=== PATIENT | male | born 1985 | race Two or more races ===

== ENCOUNTER 2016-08-25 13:27 | Emergency (ER) | payer OTHER ==
[~2016-08-25] VITALS: Ht 172.7 cm; Wt 68.2 kg
[2016-08-25 13:42] LABS: GLUCOSE,POINT OF CARE 70 MG/DL (70-110)
[2016-08-25 13:45] LABS: BASOPHILS % (AUTO) 0.4 % (0.0-2.0); EOSINOPHILS % (AUTO) 0.8 % (1.0-6.0); HEMATOCRIT 42.9 % (41-53); HEMOGLOBIN 14.1 g/dL (13.5-17.5); LYMPHOCYTES # (AUTO) 2.5 K/uL (1.0-4.8); LYMPHOCYTES % (AUTO) 28.3 % (22.0-44.0); MEAN CORPUSCULAR HEMOGLOBIN 26.2 pg (26.0-34.0); MEAN CORPUSCULAR HGB CONC 32.7 G/dL (31.0-37.0); MEAN CORPUSCULAR VOLUME 80 fL (80-100); MONOCYTES # (AUTO) 0.4 K/uL (0.1-1.0); MONOCYTES % (AUTO) 4.2 % (2.0-9.0); NEUTROPHILS # (AUTO) 5.9 K/uL (1.8-7.7); NEUTROPHILS % (AUTO) 66.3 % (40.0-70.0); PLATELET COUNT (AUTO) 492 K/uL (150-450); RED BLOOD CELL COUNT(AUTO) 5.35 MIL/uL (4.50-5.90); WHITE BLOOD COUNT (AUTO) 8.9 K/uL (4.5-11.0)
[2016-08-25 13:58] LABS: ANION GAP 11 mmol/L (8-16); CALCIUM, TOTAL 9.6 mg/dL (8.8-10.5); CARBON DIOXIDE 28 mmol/L (22-29); CHLORIDE 100 mmol/L (98-107); CREATININE 0.79 mg/dL (0.60-1.30); GLOMERULAR FILTR. RATE CALC > 60 mL/min (>60); POTASSIUM 4.2 mmol/L (3.5-5.1); SODIUM SERUM 139 mmol/L (136-145); UREA NITROGEN, BLOOD 9 mg/dL (7-18)
[2016-08-25 14:02] LABS: ALANINE AMINOTRANSFERASE 26 U/L (12-78); ALBUMIN 3.6 g/dL (3.4-5.0); ASPARTATE AMINOTRANSFERASE 16 U/L (15-37); BILIRUBIN,TOTAL 0.4 mg/dL (0.1-1.0); TOTAL PROTEIN, SERUM 8.7 g/dL (6.4-8.2)
[2016-08-25 15:29] VITALS: BP 133/80
== END 2016-08-25 15:30 | disposition home or self-care (01) ==
LOC: EMS 13:29
DX: F32.9 Major depressive disorder, single episode, unspecified (principal); F12.10 Cannabis abuse, uncomplicated; F15.10 Other stimulant abuse, uncomplicated; E11.9 Type 2 diabetes mellitus without complications
CPT/HCPCS: 36415; 80053; 80307; 82962; 85025; 99285; G0480

== ENCOUNTER 2022-02-23 22:54 | Inpatient (IN) | payer MEDICARE, MEDICAID ==
[~2022-02-23] VITALS: Ht 167.6 cm; Wt 57.6 kg
[~2022-02-23 22:54] MED LIST: INSLAN SQ; LURA40TA2 PO
[2022-02-23 23:21] LABS: BASOPHILS % (AUTO) 0.5 % (0.0-2.0); EOSINOPHILS % (AUTO) 4.9 % (1.0-6.0); HEMATOCRIT 40.9 % (41-53); HEMOGLOBIN 13.3 g/dL (13.5-17.5); LYMPHOCYTES # (AUTO) 2.1 K/uL (1.0-4.8); LYMPHOCYTES % (AUTO) 26.6 % (22.0-44.0); MEAN CORPUSCULAR HEMOGLOBIN 27.3 pg (26.0-34.0); MEAN CORPUSCULAR HGB CONC 32.6 G/dL (31.0-37.0); MEAN CORPUSCULAR VOLUME 84 fL (80-100); MONOCYTES # (AUTO) 0.6 K/uL (0.1-1.0); NEUTROPHILS # (AUTO) 4.7 K/uL (1.8-7.7); PLATELET COUNT (AUTO) 252 K/uL (150-450); RED BLOOD CELL COUNT(AUTO) 4.88 MIL/uL (4.50-5.90); RED CELL DISTRIBUTION WIDTH 13.9 % (11.5-14.5)
[2022-02-23 23:29] LABS: ANION GAP 5 mmol/L (8-16); CALCIUM, TOTAL 9.3 mg/dL (8.8-10.5); CARBON DIOXIDE 30 mmol/L (22-29); CHLORIDE 102 mmol/L (98-107); CREATININE 0.84 mg/dL (0.60-1.30); GLUCOSE,RANDOM 111 mg/dL (70-110); POTASSIUM 4.5 mmol/L (3.5-5.1); SODIUM SERUM 137 mmol/L (136-145); UREA NITROGEN, BLOOD 11 mg/dL (7-18)
[2022-02-23] MEDS ORDERED: LORazepam 2 MG/ML VIAL IM ONE (23:30)
[2022-02-23] MEDS ORDERED: HALOPERIDOL LACTATE 5 MG/ML VIAL IM ONE (23:30)
[2022-02-23] MEDS ORDERED: DiphenhydrAMINE HCL 50 MG/ML VIAL IM ONE (23:30)
[2022-02-23 23:33] LABS: GLOMERULAR FILTR. RATE CALC > 60 mL/min (>60)
[2022-02-23 23:35] LABS: ALANINE AMINOTRANSFERASE 35 U/L (12-78); ALBUMIN 3.8 g/dL (3.4-5.0); ALKALINE PHOSPHATASE 94 U/L (46-116); ASPARTATE AMINOTRANSFERASE 44 U/L (15-37); BILIRUBIN,TOTAL 1.4 mg/dL (0.1-1.0); TOTAL PROTEIN, SERUM 7.1 g/dL (6.4-8.2)
[2022-02-24 00:22] LABS: COVID AG,FIA SOURCE NASOPHARYNGEAL
[2022-02-24] MEDS ORDERED: OLANZapine 5 MG RAPDIS TABLET PO PRN (00:45)
[2022-02-24] MEDS ORDERED: LORazepam 2 MG TABLET PO PRN (00:45)
[2022-02-24] MEDS ORDERED: ZOLPIDEM TARTRATE 10 MG TABLET PO PRN (00:45)
[2022-02-24] MEDS ORDERED: DEXTROSE 50%-WATER 25 GM/50 ML SYRINGE IVP ONE (05:30)
[2022-02-24 05:31] LABS: GLUCOSE,POINT OF CARE 36 MG/DL (70-110)
[2022-02-24 06:21] LABS: GLUCOSE,POINT OF CARE 258 MG/DL (70-110)
[2022-02-24 07:05] LABS: GLUCOSE,POINT OF CARE 322 MG/DL (70-110)
[2022-02-24] MEDS ORDERED: INSULIN REGULAR, HUMAN 100 UNITS/ML IVP ONE (09:00)
[2022-02-24 09:01] LABS: GLUCOSE,POINT OF CARE 358 MG/DL (70-110)
[2022-02-24 09:26] LABS: GLUCOSE,POINT OF CARE 400 MG/DL (70-110)
[2022-02-24 10:06] LABS: GLUCOSE,POINT OF CARE 198 MG/DL (70-110)
[2022-02-24 11:41] LABS: GLUCOSE,POINT OF CARE 158 MG/DL (70-110)
[2022-02-24] MEDS ORDERED: MAGNESIUM HYDROXIDE SUSPENSION 30 ML UDCUP PO PRN (13:45)
[2022-02-24] MEDS ORDERED: TUBERCULIN, PURIFIED PROTEIN DERIVATIVE 5 TU/0.1 ML SYRINGE ID ONE (13:45)
[2022-02-24] MEDS ORDERED: HydrOXYzine PAMOATE 50 MG CAPSULE PO PRN (13:45)
[2022-02-24] MEDS ORDERED: PROMETHAZINE HCL 25 MG TABLET PO PRN (13:45)
[2022-02-24] MEDS ORDERED: GuaiFENesin/D-METHORPHAN [SUGAR-FREE] 200-20MG/10 ML SYRUP UDCUP PO PRN (13:45)
[2022-02-24] MEDS ORDERED: MAG HYDROX/AL HYDROX/SIMETH ES 30 ML SUSPENSION UDCUP PO PRN (13:45)
[2022-02-24] MEDS ORDERED: ACETAMINOPHEN 325 MG TABLET PO PRN (13:45)
[2022-02-24] MEDS ORDERED: LOPERAMIDE HCL 2 MG CAPSULE PO PRN (13:45)
[2022-02-24 14:13] VITALS: BP 95/59
[2022-02-24] MEDS ORDERED: PNEUMOCOCCAL VACCINE POLYVALENT 0.5 ML VIAL [PPSV23] IM. ONE (14:45)
[2022-02-24] MEDS ORDERED: INFLUENZA VIRUS VACCINE QVS 2022-23 (6MO+)/PF 60 MCG/0.5 ML SYRINGE IM. ONE (14:45)
[2022-02-24 16:10] VITALS: BP 109/77
[2022-02-24] MEDS: THIAMINE 100 MG TABLET PO SCH (16:18)
[2022-02-24] MEDS ORDERED: INSULIN LISPRO 100 UNITS/ML SQ PRN ×3 (16:30→18:47)
[2022-02-24] MEDS ORDERED: GLUCAGON,HUMAN RECOMBINANT 1 MG VIAL IM PRN ×2 (16:30→18:30)
[2022-02-24] MEDS ORDERED: INSULIN LISPRO 100 UNITS/ML SQ SCH (17:00)
[2022-02-24 20:32] LABS: GLUCOMETER DEV NAME(LOC) BV3N.; GLUCOSE,POINT OF CARE 437 MG/DL (70-110)
[2022-02-24] MEDS: MELATONIN 5 MG TABLET PO SCH ×2 (20:36→21:53)
[2022-02-24] MEDS: OLANZapine 5 MG RAPDIS TABLET PO SCH ×2 (20:36→21:53)
[2022-02-24] MEDS ORDERED: INSULIN GLARGINE,HUM.REC.ANLOG 100 UNITS/ML SQ SCH ×2 (21:00)
[2022-02-24 22:21] LABS: GLUCOMETER DEV NAME(LOC) BV3N.; GLUCOSE,POINT OF CARE 94 MG/DL (70-110)
[2022-02-25 00:19] VITALS: BP 110/80
[2022-02-25 07:46] LABS: GLUCOMETER DEV NAME(LOC) BV3N.; GLUCOSE,POINT OF CARE 46 MG/DL (70-110)
[2022-02-25 07:46] LABS: GLUCOMETER DEV NAME(LOC) BV3N.; GLUCOSE,POINT OF CARE 34 MG/DL (70-110)
[2022-02-25 08:29] VITALS: BP 100/63
[2022-02-25] MEDS: FOLIC ACID 1 MG TABLET PO SCH (08:32)
[2022-02-25] MEDS: NALTREXONE HCL 50 MG TABLET PO SCH (08:32)
[2022-02-25] MEDS: MULTIVITAMINS WITH MINERALS, THERAPEUTIC TABLET PO SCH (08:32)
[2022-02-25] MEDS: THIAMINE 100 MG TABLET PO SCH ×2 (08:32→16:39)
[2022-02-25] MEDS: OMEGA-3/DHA/EPA/FISH OIL 1,000 MG CAPSULE PO SCH (08:34)
[2022-02-25] MEDS ORDERED: GLUCAGON,HUMAN RECOMBINANT 1 MG VIAL IM PRN (09:00)
[2022-02-25] MEDS: INSULIN LISPRO 100 UNITS/ML SQ PRN ×3 (11:43→21:19)
[2022-02-25 11:51] LABS: GLUCOMETER DEV NAME(LOC) BV3N.; GLUCOSE,POINT OF CARE 323 MG/DL (70-110)
[2022-02-25 16:51] LABS: GLUCOMETER DEV NAME(LOC) BV3N.; GLUCOSE,POINT OF CARE 334 MG/DL (70-110)
[2022-02-25 20:36] VITALS: BP 126/87
[2022-02-25] MEDS ORDERED: OLANZapine 10 MG RAPDIS TABLET PO SCH (21:00)
[2022-02-25] MEDS ORDERED: INSULIN GLARGINE,HUM.REC.ANLOG 100 UNITS/ML SQ SCH (21:00)
[2022-02-25] MEDS: MELATONIN 5 MG TABLET PO SCH (21:15)
[2022-02-25 21:36] LABS: GLUCOMETER DEV NAME(LOC) BV3N.; GLUCOSE,POINT OF CARE 327 MG/DL (70-110)
[2022-02-26 06:26] LABS: GLUCOMETER DEV NAME(LOC) BV3N.; GLUCOSE,POINT OF CARE 214 MG/DL (70-110)
[2022-02-26] MEDS: INSULIN LISPRO 100 UNITS/ML SQ PRN ×4 (06:47→21:02)
[2022-02-26 08:04] LABS: HEMOGLOBIN A1C 6.8 % (3.8-5.6)
[2022-02-26 08:22] VITALS: BP 138/84
[2022-02-26 08:24] LABS: CHOL/HDL RATIO 4.2 (4.2-7.3); FREE T4 (FREE THYROXINE) 0.91 ng/dL (0.76-1.46); THYROID STIMULATING HORMONE 0.51 uIU/mL (0.36-3.74)
[2022-02-26] MEDS: FOLIC ACID 1 MG TABLET PO SCH (08:56)
[2022-02-26] MEDS: NALTREXONE HCL 50 MG TABLET PO SCH (08:56)
[2022-02-26] MEDS: OMEGA-3/DHA/EPA/FISH OIL 1,000 MG CAPSULE PO SCH (08:56)
[2022-02-26] MEDS: THIAMINE 100 MG TABLET PO SCH ×2 (08:56→17:35)
[2022-02-26] MEDS: MULTIVITAMINS WITH MINERALS, THERAPEUTIC TABLET PO SCH (08:56)
[2022-02-26 12:01] LABS: GLUCOMETER DEV NAME(LOC) BV3N.; GLUCOSE,POINT OF CARE 275 MG/DL (70-110)
[2022-02-26] MEDS ORDERED: LURASIDONE HCL 20 MG TABLET PO PRN (13:30)
[2022-02-26] MEDS ORDERED: LURA40TA2 PO (13:32)
[2022-02-26] MEDS ORDERED: NALT50TA PO (13:32)
[2022-02-26] MEDS ORDERED: OMEG-135 PO (13:32)
[2022-02-26] MEDS ORDERED: MELA5TAB40 PO (13:32)
[2022-02-26] MEDS ORDERED: LURASIDONE HCL 40 MG TABLET PO SCH (17:00)
[2022-02-26] MEDS ORDERED: GLUCAGON,HUMAN RECOMBINANT 1 MG VIAL IM PRN (17:30)
[2022-02-26] MEDS ORDERED: INSULIN LISPRO 100 UNITS/ML SQ PRN (17:30)
[2022-02-26 18:02] LABS: GLUCOMETER DEV NAME(LOC) BV3N.; GLUCOSE,POINT OF CARE 408 MG/DL (70-110)
[2022-02-26 20:21] VITALS: BP 128/66
[2022-02-26] MEDS: MELATONIN 5 MG TABLET PO SCH (20:57)
[2022-02-26] MEDS ORDERED: INSULIN GLARGINE,HUM.REC.ANLOG 100 UNITS/ML SQ SCH (21:00)
[2022-02-26 21:21] LABS: GLUCOMETER DEV NAME(LOC) BV3N.; GLUCOSE,POINT OF CARE 245 MG/DL (70-110)
[2022-02-27 06:21] LABS: GLUCOMETER DEV NAME(LOC) BV3N.; GLUCOSE,POINT OF CARE 196 MG/DL (70-110)
[2022-02-27] MEDS: INSULIN LISPRO 100 UNITS/ML SQ PRN (06:30)
[2022-02-27] MEDS: NALTREXONE HCL 50 MG TABLET PO SCH (08:28)
[2022-02-27] MEDS: FOLIC ACID 1 MG TABLET PO SCH (08:28)
[2022-02-27] MEDS: MULTIVITAMINS WITH MINERALS, THERAPEUTIC TABLET PO SCH (08:28)
[2022-02-27] MEDS: OMEGA-3/DHA/EPA/FISH OIL 1,000 MG CAPSULE PO SCH (08:28)
[2022-02-27] MEDS: THIAMINE 100 MG TABLET PO SCH (08:28)
[2022-02-27] MEDS ORDERED: INSU3INS3 SQ (13:19)
== END 2022-02-27 11:15 | disposition home or self-care (01) | DRG 885 ==
LOC: EMS 23:08 → B3A 02-24 11:42
PROVIDERS: ADMIT Psychiatry & Neurology Psychiatry; ATTEND Psychiatry & Neurology Psychiatry
DX: F25.9 Schizoaffective disorder, unspecified (principal); R45.851 Suicidal ideations; R64 Cachexia; F15.10 Other stimulant abuse, uncomplicated; Z20.822 Contact with and (suspected) exposure to COVID-19; D64.9 Anemia, unspecified; E10.649 Type 1 diabetes mellitus with hypoglycemia without coma; F17.200 Nicotine dependence, unspecified, uncomplicated; J44.9 Chronic obstructive pulmonary disease, unspecified; R45.850 Homicidal ideations; Z55.9 Problems related to education and literacy, unspecified; Z59.9 Problem related to housing and economic circumstances, unspecified; Z63.9 Problem related to primary support group, unspecified; Z65.3 Problems related to other legal circumstances; Z79.4 Long term (current) use of insulin; Z91.14 Patient's other noncompliance with medication regimen
CPT/HCPCS: 80053; 80061; 82962; 83036; 84439; 84443; 85025; 86592; 99285; G0480; J1200; J1630; J1815; J2060; Q9967

== ENCOUNTER 2024-04-19 19:57 | Emergency (ER) | payer MEDICARE, MEDICAID, OTHER ==
[~2024-04-19] VITALS: Ht 170.2 cm; Wt 72.7 kg
[~2024-04-19 19:57] MED LIST changes: +INSU3INS3 SQ; +MELA5TAB40 PO; +NALT50TA6 PO; +OMEG-135 PO
[2024-04-19 20:35] VITALS: TEMP 98.7
[2024-04-19 22:18] LABS: BASOPHILS % (AUTO) 0.3 % (0.0-2.0); EOSINOPHILS % (AUTO) 1.2 % (1.0-6.0); HEMATOCRIT 41.9 % (41-53); HEMOGLOBIN 13.9 g/dL (13.5-17.5); LYMPHOCYTES # (AUTO) 1.2 K/uL (1.0-4.8); LYMPHOCYTES % (AUTO) 12.2 % (22.0-44.0); MEAN CORPUSCULAR HEMOGLOBIN 28.3 pg (26.0-34.0); MEAN CORPUSCULAR HGB CONC 33.3 G/dL (31.0-37.0); MEAN CORPUSCULAR VOLUME 85 fL (80-100); MONOCYTES # (AUTO) 0.5 K/uL (0.1-1.0); MONOCYTES % (AUTO) 4.7 % (2.0-9.0); NEUTROPHILS # (AUTO) 8.2 K/uL (1.8-7.7); NEUTROPHILS % (AUTO) 81.6 % (40.0-70.0); PLATELET COUNT (AUTO) 247 K/uL (150-450); RED BLOOD CELL COUNT(AUTO) 4.93 MIL/uL (4.50-5.90); RED CELL DISTRIBUTION WIDTH 14.1 % (11.5-14.5)
[2024-04-19 22:26] LABS: ANION GAP 7 mmol/L (8-16); CALCIUM, TOTAL 8.7 mg/dL (8.8-10.5); CARBON DIOXIDE 30 mmol/L (22-29); CHLORIDE 102 mmol/L (98-107); CREATININE 0.71 mg/dL (0.60-1.30); GLOMERULAR FILTR. RATE CALC > 60 mL/min (>60); GLUCOSE,RANDOM 151 mg/dL (70-110); POTASSIUM 3.6 mmol/L (3.5-5.1); SODIUM SERUM 139 mmol/L (136-145); UREA NITROGEN, BLOOD 9 mg/dL (7-18)
[2024-04-19 23:46] VITALS: BP 128/95; PULSE 72; RESP 16; O2SAT 95
== END 2024-04-20 00:08 ==
LOC: EMS 19:57
DX: Z02.89 Encounter for other administrative examinations (principal); E11.649 Type 2 diabetes mellitus with hypoglycemia without coma; F17.210 Nicotine dependence, cigarettes, uncomplicated; F12.90 Cannabis use, unspecified, uncomplicated; Z79.4 Long term (current) use of insulin
CPT/HCPCS: 80048; 82962; 85025; 99283